=== PATIENT | male | born 1965 | race American Indian/Alaskan Native ===

== ENCOUNTER 2018-12-28 08:28 | Day surgery (SDC) | payer OTHER ==
[~2018-12-28 08:28] MED LIST: SODIUM CHLORIDE 0.9% 1000 ML 1,000 ML IV SCH
--- NOTE | 2018-12-28 09:26 | Anesthesia Consultation ---
Anesthesia Consult and Med Hx Date of service: 12/28/18 - Airway Anesthetic Teeth Evaluation: Good ROM Head & Neck: Adequate Mental/Hyoid Distance: Adequate Mallampati Class: Class II Intubation Access Assessment: Probably Good - Pulmonary Exam CTA: Yes - Cardiac Exam Cardiac Exam: No Murmur - Pre-Operative Health Status ASA Pre-Surgery Classification: ASA2 Proposed Anesthetic Plan: MAC - Pulmonary Hx Smoking: Yes - Cardiovascular System Hx Hypertension: Yes
--- NOTE | 2018-12-28 09:26 | Anesthesia Day of Surgery ---
Anesthesia Day of Surgery - Day of Surgery Patient Examined: Yes Patient H&P Reviewed: Yes Patient is NPO: Yes Beta Blockers: No
[2018-12-28] MEDS ORDERED: PROPOFOL 200 MG/20 ML VIAL IV ONE ×2 (10:32)
--- NOTE | 2018-12-28 11:22 | Operative Report ---
PROCEDURE: Esophagogastroduodenoscopy with biopsy. INDICATIONS: This is a 53-year-old -[place] gentleman who has been having GERD symptoms. EGD was done to assess for the problem. DESCRIPTION: Procedure was done after informed consent with the MAC anesthesia. Instrument was passed through the hypopharynx into the esophagus, which showed moderate distal erosive esophagitis. The stomach showed a small hiatal hernia on the retroverted view as well as antral gastritis. There were no ulcers noted in the straight of the retroverted view. The pylorus was patent. The duodenum in the first and second portion appeared normal. Biopsy was done from the distal esophagus to assess for the severity of the esophagitis as well as from the gastric antrum and the gastric body to rule out for H. pylori and atrophic gastritis. ASSESSMENT: Gastroesophageal reflux disease symptoms, moderate erosive esophagitis, gastritis, small hiatal hernia. PLAN: To treat the patient with PPI. Avoid aspirin and aspirin-related products for the next few days and have the patient follow up in the office in 1-2 weeks' time. The patient will be asked to resume home medications, but avoid aspirin and aspirin-related products. The patient will be placed on PPI. Colonoscopy will also be done as part of colon polyp screening. The procedure was done in the GI lab with assistance of the GI lab team, which included Leandra ENRIQUEZ and assistance with Jacqueline jones and also with the help of anesthesia. JOB# [id number] NITHYA/BRYAN
--- NOTE | 2018-12-28 11:22 | Procedure Note ---
Date of procedure: 12/28/18 Pre-op diagnosis: GERD/Colon Polyp Screening Post-op diagnosis: other (Moderate,Erosive Esophagitis/Gastritis/Small, Hiatal Hernia/) Procedure: EGD with Biopsy and Colonoscopy with Biopsy Anesthesia: SUNG Surgeon: ALICE RESENDIZ Estimated blood loss: minimal Pathology: list Specimen disposition: to lab Condition: stable Disposition: same day (Treat with PPI. Avoid aspirin,NSAID for 5 days; otherwise resume home medication and follow up in 1 to 2 weeks ([phone]).)
--- NOTE | 2018-12-28 11:22 | Operative Report ---
PROCEDURE: Colonoscopy with biopsy. INDICATIONS: A 53-year-old -[place] gentleman who had an EGD done because of GERD symptoms, which showed presence of a small hiatal hernia, moderate erosive esophagitis and gastritis. Colonoscopy was done as part of colon polyp screening. DESCRIPTION OF PROCEDURE: Procedure was done after getting informed consent with MAC anesthesia. Initial rectal exam was unremarkable. Instrument was passed through the rectum onto the cecum, which was identified with ileocecal valve and appendiceal orifice. Visualization was fair to good. Cecum, ascending colon showed normal mucosa. There were several small possibly hyperplastic polyps noted in the transverse and in the adjacent descending colon. The sigmoid showed normal mucosa. In the rectum, there were minor small polyps again noted, which was removed by cold biopsy, possibly hyperplastic in type with minimal bleeding from the polypectomy sites and the rectum showed some minor internal hemorrhoid on the retroverted view. ASSESSMENT AND PLAN: Colon polyp screening, multiple small transverse and descending colon and rectal polyps, possibly hyperplastic. Minor internal hemorrhoid. Plan is to encourage the patient to avoid aspirin and aspirin-related products for the next few days. Treat the patient with PPI because of the EGD findings of esophagitis, gastritis, otherwise have the patient resume his home medication except for aspirin and aspirin-related products and follow up in the office in 1-2 weeks' time. The procedure was done in the GI lab with assistance of the GI lab team, which included ZOE Mobley and Jacqueline jones and with assistance of anesthesia. JOB# [id number] NITHYA/BRYAN
--- NOTE | 2018-12-28 11:52 | Post Anesthesia Evaluation ---
- Post Anesthesia Evaluation Patient Participated: Yes Airway Patent: Yes Stable Respiratory Function: Yes Nausea/Vomiting: No Temp > 96.8F: Yes Pain Manageable: Yes Adequeate Hydration: Yes Anesthesia Complications: No
[2018-12-28 12:29] VITALS: BP 124/58
== END 2018-12-28 08:29 | disposition home or self-care (01) ==
LOC: GIO 08:28
DX: Z12.11 Encounter for screening for malignant neoplasm of colon (principal); D12.8 Benign neoplasm of rectum; K29.50 Unspecified chronic gastritis without bleeding; K64.8 Other hemorrhoids; K21.0 Gastro-esophageal reflux disease with esophagitis; K44.9 Diaphragmatic hernia without obstruction or gangrene; I10 Essential (primary) hypertension; F17.210 Nicotine dependence, cigarettes, uncomplicated; Z79.899 Other long term (current) drug therapy; Z98.890 Other specified postprocedural states
CPT/HCPCS: 43239; 45380; 88305; 88342; J2704